=== PATIENT | female | born 2000 | race Caucasian/White ===

== ENCOUNTER 2018-03-10 18:41 | Inpatient (IN) ==
[2018-03-10] MEDS ORDERED: LACTATED RINGERS 1,000 ML IV ONE (19:50)
[2018-03-10] MEDS ORDERED: FAMOTIDINE 20 MG/2 ML VIAL IV ONE ×2 (20:11→20:23)
[2018-03-10] MEDS ORDERED: CITRIC ACID/SODIUM CITRATE 30 ML UDCUP PO ONE (20:11)
[2018-03-10] MEDS ORDERED: TERBUTALINE 1 MG/1 ML VIAL SUBCUT ONE (20:12)
[2018-03-10] MEDS ORDERED: ceFAZolin 2,000 MG in PREMIX 1 EACH IV ONE (20:19)
[2018-03-10] MEDS ORDERED: BUPIVACAINE SPINAL 0.75% 2 ML AMP SPINAL ONE (20:22)
[2018-03-10] MEDS ORDERED: CITRIC ACID/SODIUM CITRATE 30 ML UDCUP ONE (20:23)
[2018-03-10] MEDS ORDERED: OXYTOCIN/LR 20 UNIT/1,000 ML BAG IV ONE ×2 (20:25→20:56)
[2018-03-10 20:39] LABS: Basophils % 0.4 % (0.0-0.8); Eosinophils % 0.4 % (0.00-10.9); Hematocrit 29.3 VOL% (35.7-47.0); Hemoglobin 9.4 GM/DL (12.0-16.0); Immature Granulocytes % 0.7 %; Immature Granulocytes Absolute 0.07 #; Lymphocytes # 1.3 10*3/uL (1.4-4.0); Lymphocytes % 11.9 % (21.3-54.2); Mean Corpuscular HGB Conc 32.1 GM/DL (32-36); Mean Corpuscular Hemoglobin 26 PG (27-34); Mean Corpuscular Volume 81.4 FL (87-102); Mean Platelet Volume 10.7 FL (9.6-12.0); Monocytes # 0.9 10*3/uL (0.11-0.8); Monocytes % 7.9 % (1.7-12.7); Neutrophils # 8.5 10*3/uL (1.4-7.4); Neutrophils % 78.7 % (38.7-73.9); Platelet Count 213 T/CUMM (130-400); Red Cell Distribution Width 15.9 % (9.3-17.3); White Blood Count 10.8 T/CUMM (4-12)
[2018-03-10] MEDS ORDERED: RHO(D) IMMUNE GLOBULIN 300 MCG SYRINGE IM ONE (20:56)
[2018-03-10] MEDS ORDERED: ONDANSETRON 4 MG/2 ML VIAL IV PRN (20:56)
[2018-03-10] MEDS ORDERED: ACETAMINOPHEN 325 MG TABLET PO PRN (20:56)
[2018-03-10] MEDS ORDERED: LACTATED RINGERS 1,000 ML IV SCH (21:00)
[2018-03-10 21:06] LABS: Albumin 2.5 G/DL (3.4-5.0); Bilirubin,Total 0.6 MG/DL (0.2-1.0); Calcium 8.6 MG/DL (8.5-10.1); Osmolality,Calculated 275.4 MOS/KG (273-304); Potassium 3.5 MMOL/L (3.5-5.1); Total Protein 5.8 G/DL (6.4-8.3)
[2018-03-10] MEDS ORDERED: METHYLERGONOVINE 0.2 MG/1 ML AMP IM ONE (21:19)
[2018-03-10] MEDS ORDERED: METHYLERGONOVINE 0.2 MG/1 ML AMP ONE (21:21)
[2018-03-10 21:46] LABS: Cord Arterial Blood HCO3 25.1 MMOL/L
[2018-03-10 21:49] LABS: Cord Venous Blood HCO3 22.4 MMOL/L; Cord Venous Blood PCO2 37.6 MMHG; Cord Venous Blood PO2 27.3 MMHG
[2018-03-10] MEDS ORDERED: TISSUE ADHESIVE 1 EACH APPLICATOR TOP ONE (22:00)
[2018-03-10] MEDS ORDERED: fentaNYL 100 MCG/2 ML VIAL ONE (22:29)
[2018-03-10] MEDS ORDERED: MORPHINE 10 MG/10 ML VIAL ONE (22:29)
[2018-03-11] MEDS ORDERED: diphenhydrAMINE 50 MG/1 ML VIAL IV PRN (00:11)
[2018-03-11] MEDS ORDERED: CITRIC ACID/SODIUM CITRATE 30 ML UDCUP PO ONE (02:00)
[2018-03-11 03:40] LABS: Apearance,Urine CLOUDY (Clear); Bilirubin,Urine Negative (Negative); Blood, Urine Negative (Negative); Glucose,Urine (UA) Negative (Negative); Ketones,Urine 5 mg/dL (Negative); Mucus,Urine Occasional /LPF (Occasional); Nitrite,Urine Negative (Negative); Protein,Urine Negative; Urine Color Yellow (Yellow); Urine Specific Gravity 1.012 (1.001-1.035); Urine Urobilinogen < 2.0 EU/DL (0.2-1.0); WBC,Urine 15 /HPF (0-6)
[2018-03-11 06:15] LABS: Basophils % 0.2 % (0.0-0.8); Hematocrit 23.2 VOL% (35.7-47.0); Red Cell Distribution Width 16.2 % (9.3-17.3)
[2018-03-11 06:23] LABS: Eosinophils % 0.3 % (0.00-10.9); Immature Granulocytes % 0.4 %; Immature Granulocytes Absolute 0.04 #; Lymphocytes # 1.5 10*3/uL (1.4-4.0); Lymphocytes % 15.6 % (21.3-54.2); Mean Corpuscular HGB Conc 32.8 GM/DL (32-36); Mean Corpuscular Hemoglobin 26 PG (27-34); Mean Corpuscular Volume 79.2 FL (87-102); Mean Platelet Volume 10.9 FL (9.6-12.0); Monocytes # 0.7 10*3/uL (0.11-0.8); Neutrophils # 7.2 10*3/uL (1.4-7.4); Neutrophils % 76.5 % (38.7-73.9); Platelet Count 198 T/CUMM (130-400); Red Blood Count 2.93 MC/CUMM (3.8-5.5); White Blood Count 9.4 T/CUMM (4-12)
[2018-03-11 06:24] LABS: Hemoglobin 7.6 GM/DL (12.0-16.0)
[2018-03-11] MEDS: IBUPROFEN 800 MG TABLET PO PRN (10:48)
[2018-03-11] MEDS: MULTIVITAMIN (PRENATAL) TABLET PO SCH (14:10)
[2018-03-11] MEDS: DOCUSATE SODIUM 100 MG CAPSULE PO SCH ×2 (18:06→22:19)
[2018-03-11] MEDS: MAGNESIUM HYDROXIDE SUSP 30 ML UDCUP PO PRN (22:19)
[2018-03-11] MEDS: SIMETHICONE CHEW 80 MG TABLET PO PRN (22:19)
[2018-03-12] MEDS: MULTIVITAMIN (PRENATAL) TABLET PO SCH (09:18)
[2018-03-12] MEDS: DOCUSATE SODIUM 100 MG CAPSULE PO SCH ×2 (09:18→22:39)
[2018-03-12] MEDS: MAGNESIUM HYDROXIDE SUSP 30 ML UDCUP PO PRN ×2 (09:18→18:04)
[2018-03-12] MEDS: SIMETHICONE CHEW 80 MG TABLET PO PRN ×2 (09:18→18:04)
[2018-03-12] MEDS: IBUPROFEN 800 MG TABLET PO PRN ×2 (09:22→18:04)
[2018-03-13 07:16] VITALS: BP 132/76
[2018-03-13] MEDS: MULTIVITAMIN (PRENATAL) TABLET PO SCH (09:05)
[2018-03-13] MEDS: DOCUSATE SODIUM 100 MG CAPSULE PO SCH (09:06)
== END 2018-03-13 13:00 | disposition home or self-care (01) | DRG 766 ==
LOC: N.LDOUT 18:41 → N.LD 18:42 → N.OB 03-11 00:45
PROVIDERS: ADMIT Obstetrics & Gynecology; ATTEND Obstetrics & Gynecology
PROC: LDCSECT (ICD-10-PCS; 2018-03-10 20:45)